=== PATIENT | male | born 1970 | race Caucasian/White ===

== ENCOUNTER 2019-12-24 08:48 | Emergency (ER) | payer MEDICAID ==
[~2019-12-24] VITALS: Ht 165.1 cm; Wt 88.0 kg
[2019-12-24] MEDS ORDERED: HYDROCODONE/ACETAMINOPHEN 5/325MG TABLET PO ONE (09:45)
[2019-12-24 12:14] VITALS: BP 122/78
== END 2019-12-24 12:18 | disposition home or self-care (01) ==
LOC: ER 08:48
DX: S82.831A Other fracture of upper and lower end of right fibula, initial encounter for closed fracture (principal); R03.0 Elevated blood-pressure reading, without diagnosis of hypertension; W17.89XA Other fall from one level to another, initial encounter; Y93.89 Activity, other specified; Y92.521 Bus station as the place of occurrence of the external cause
CPT/HCPCS: 29505; 73610; 73630; 99284